=== PATIENT | female | born 1985 | race Caucasian/White ===

== ENCOUNTER 2020-11-06 20:28 | Emergency (ER) | payer OTHER, SELFPAY ==
[2020-11-06 20:31] VITALS: BP 150/87; PULSE 90; RESP 16; TEMP 37; O2SAT 98; BMI 33.0
--- NOTE | 2020-11-06 21:24 | ED.SKABFB ---
HPI - Skin/Abscess/Foreign Bdy General Chief complaint: Skin/Abscess/Foreign Body Stated complaint: ABSCESS Time Seen by Provider: 11/06/20 20:52 Source: patient Mode of arrival: ambulatory Limitations: no limitations History of Present Illness HPI narrative: Patient has small cyst on the back of the neck for many months which is getting bigger for last few days and tender complaint: abscess/boil Onset (ago): month(s) Location: neck Severity: mild Quality: aching Relieving factors: none Exacerbating factors: none Context: none Related Data Previous Rx's Medication Instructions Recorded cephalexin [Keflex] 500 mg PO QID 10 Days #40 cap 11/06/20 doxycycline hyclate 100 mg PO BID #20 cap 11/06/20 Allergies Allergy/AdvReac Type Severity Reaction Status Date / Time No Known Allergies Allergy Unverified 08/14/20 19:40 [No Known Allergies*] Review of Systems Review of Systems: Yes all other systems are reviewed and are negative PMFSH Social History Social History Advance Directives: No Advance Directives Information Provided: Yes Physical Exam Vital Signs: Vital Signs: Last Vital Signs Temp 98.6 F 11/06/20 20:31 Pulse 90 11/06/20 20:31 Resp 16 11/06/20 20:31 BP 150/87 H 11/06/20 20:31 Pulse Ox 98 11/06/20 20:31 Body Mass Index 33.0 Const: General: cooperative, healthy appearing and comfortable Neck: Other: Sebaceous cyst size 4 x 4 cm at lower part of the neck slight erythema of the skin no significant induration Neck: Yes full ROM, Yes no lymphadenopathy and Yes no meningeal signs Neuro: General: no meningeal signs Course Course Course Narrative: Patient clinically with sebaceous cyst at the lower part of the neck without significant infection clinically will give her a course of doxycycline and Keflex advised to follow with surgeon for cosmetic surgery Discharge Plan Discharge Clinical Impression: Sebaceous cyst Patient Disposition: Home, Self-Care Instructions: Cyst (ED) Additional Instructions: Take antibiotic as advised and follow-up with surgeon Prescriptions: New doxycycline hyclate 100 mg capsule 100 mg PO BID Qty: 20 RF: 0 cephalexin [Keflex] 500 mg capsule 500 mg PO QID 10 Days Qty: 40 RF: 0 Referrals: Maury Corbett MD [Physician] - 5 days Interventions: ED Discharge Assessment Last Done: 11/06/20 21:46 Discharge Date/Time: 11/06/20 21:49
[2020-11-06] MEDS: cephALEXin 500 MG CAPSULE PO ×2 (21:28)
== END 2020-11-06 21:49 | disposition home or self-care (01) ==
PROVIDERS: Emergency Provider Internal Medicine
DX: L72.3 Sebaceous cyst (principal)
CPT/HCPCS: 99283

== ENCOUNTER → 2020-11-12 13:38 | Outpatient (BNVA) | payer OTHER, SELFPAY | PROVIDERS: PCP Hospitalist; Visit Provider Surgery | DX: L08.9 Local infection of the skin and subcutaneous tissue, unspecified (principal); L72.3 Sebaceous cyst | CPT/HCPCS: 99202 ==

== ENCOUNTER 2021-05-05 15:07 | Outpatient (REF) | payer OTHER, SELFPAY ==
--- NOTE | ~2021-05-05 | US_ITS ---
EXAMINATION: US VENOUS ULTRASOUND WITH DOPPLER LOWER EXTREMITY, LEFT CLINICAL INFORMATION: Pain COMPARISON: None TECHNIQUE: Ultrasound of the deep veins is performed from the hip to the calf with compression sonography and color and pulse Doppler assessment. Spectral analysis with color-flow imaging is performed. FINDINGS: There is normal venous compression and respiratory variation and augmented flow. The visualized common femoral vein, superficial femoral vein, profunda femoral vein, popliteal vein, and the trifurcation region shows no evidence of deep venous thrombosis. There is no significant popliteal fossa cyst. US/US venous duplex LE LT IMPRESSION: No DVT demonstrated in the left lower extremity.
== END 2021-05-05 15:08 | disposition home or self-care (01) ==
LOC: HO.HMGCX 15:07
PROVIDERS: PCP Hospitalist; Visit Provider Nurse Practitioner Family
DX: M79.662 Pain in left lower leg (principal)
CPT/HCPCS: 93971

== ENCOUNTER 2022-08-11 11:23 | Outpatient (REF) | payer MEDICAID, SELFPAY | END 2022-08-11 11:24 | disposition home or self-care (01) | LOC: HO.LNP 11:23 | PROVIDERS: Visit Provider Hospitalist | DX: Z00.00 Encounter for general adult medical examination without abnormal findings (principal) | CPT/HCPCS: 87086 ==